=== PATIENT | male | born 1940 | race Caucasian/White ===

== ENCOUNTER → 2019-06-09 | Outpatient (CLI) | payer OTHER ==
[~2019-06-09] VITALS: Ht 180.3 cm; Wt 90.1 kg
[~2019-06-09] MED LIST: ACTOS 30 MG TAB30 M1 PO; ASA81BEC PO; ATORVASTATIN CA80 MG PO; FISH OIL 1,0001 EAC9 PO; FOLIC ACID1 MG PO; LISINOPRIL2.5 MG PO; MULTIPLE VITAM1 EAC2 PO; NORVASC 2.5 MG2.5 M1 PO; PRILOSEC OTC20 MG PO; VITAMIN B-121000 MC2 PO; ZESTRIL40 MG PO
[2019-06-09 08:22] VITALS: BP 165/64
[2019-06-09 09:01] LABS: HEMOGLOBIN 14.4 gm/dL (14.0-18.0); MCH 30.3 pg (26.0-34.0); MCHC 32.8 g/dL (28.0-37.0); MCV 92.6 fL (80.0-100.0); RBC 4.75 mil/uL (4.50-6.00); RDW 13.9 % (10.5-14.5); WBC 4.9 thou/uL (4.0-11.0)
[2019-06-09 09:13] LABS: CALCIUM 9.7 mg/dL (8.5-10.1); CREATININE 1.5 mg/dL (0.7-1.3); POTASSIUM 3.8 mmol/L (3.5-5.1)
--- NOTE | 2019-06-14 18:52 | CATHLAB ---
[facility] [address] [place] [address] INVASIVE PROCEDURE REPORT Name: JEMIMA GOYAL [facility]: [facility] [id number] Admission: 06/09/19 Attend Phys: Han Koenig Discharge: Date of : 38 Report #: [id number] THIS REPORT FOR: //name// APPROVED REPORT Study performed: 06/09/2019 09:45:14 Patient Details Patient Status: Out-Patient Room #: The patient is a 78 year-old male Event Personnel Han Butler Sales Mgr, Anastasiia Lang RN RN, Mana Patel Monitor, Ruth Tao RTR Scrub Procedures Performed Art Access - R femoral artery* 98786 Initial Mod Sed Same Phys/QHP Gr5y 551883 Left Heart Cath w/or w/o Coronaries [id number] C Hemostasis with Manual pressure 70247 Mod Sed Same Phys/QHP Ea 167203, supervision of conscious sedation Indication Chest pain Procedure Narrative The patient was brought electively to the Cardiac Catheterization Laboratory and was prepped and draped in a sterile manner. The Right Groin^ was infiltrated with 1% Lidocaine subcutaneous anesthesia. A BRITE TIP 6FR X 23CM Sheath #[id number] sheath was inserted into the RFA^. Coronary angiography was performed using coronary diagnostic catheters. The right coronary system was accessed and visualized with a JR 4 catheter. The left coronary system was accessed and visualized with a JL 4 catheter. The left ventricle was accessed and visualized with a JR 4 catheter. Left ventricular/Aortic Valve gradient assessed via catheter pullback. Hemostasis was obtained with manual pressure following sheath removal without any complications. The patient tolerated the procedure well and there were no complications associated with the procedure. There was no hematoma. Intraoperative Conscious Sedation Sedation start time: 09:39 Case end Time: 10:18 Versed 3 mg Fluoro Time: 5.00 minutes [facility] [place] [address] INVASIVE PROCEDURE REPORT Name: JYOTSNAJEMIMA JOHN Room #: REG CL [facility]#: [id number] Admission: 06/09/19 Attend Phys: Han Keonig Discharge: Date of : 38 Report #: [id number] Dose: DAP 7245.00 cGycm2 1263 mGy Contrast Type and Amount: Omnipaque 55 ml Coronary Angiography The patient's coronary anatomy is right dominant. Diagnostic Cath Left Main Moderate to large-caliber vessel bifurcates left anterior descending left circumflex free of high-grade disease LAD Moderate caliber type III vessel which courses in the anterior interventricular sulcus. The vessel is heavily calcified on fluoroscopy in the proximal and mid portions. Angiography demonstrates the presence of a 50% eccentric lesion at the site of heavy calcification the proximal LAD. This does not appear to be flow-limiting. It continues on giving rise to diagonal branches were free of high-grade disease. The vessels courses tortuous towards the apex continuing to give rise to septal and diagonal branches with only mild irregularities noted. No high-grade lesions are present Diagonal 1 Small-caliber vessel with an ostial lesion noted. There does not appear to be flow-limiting. The vessel is diminutive in size Circumflex Moderate to large caliber nondominant vessel which courses in the AV groove and gives rise to a large marginal branch which bifurcates and proceed along the lateral last week of the left ventricle. Luminal irregularities are noted but no high-grade lesions are present. The circumflex proper then continues on to Haynes small posterior wall branch OM1 Large-caliber bifurcating vessel without high-grade lesions noted as it trifurcates beyond the initial takeoff of the circumflex proper. It is free of high-grade stenosis. Right Coronary Moderate to large-caliber vessel of normal origin. Courses in the AV groove giving rise to small caliber RV and RA branches. Then continues to the crux of the heart giving rise to a small to moderate caliber posterior descending artery and terminating in a small caliber posterior wall branch free of high-grade lesions or luminal irregularities R PDA Small to moderate caliber vessel coursing in the posterior interventricular sulcus free of high-grade disease as it proceeds for the apex. Left Ventriculography Left Ventriculography was not performed. Hemodynamics The aortic pressure is 146/67 mmHg with a mean of 98 mmHg. The left [facility] [address] [place] [address] INVASIVE PROCEDURE REPORT Name: JEMIMA GOYAL LADI Room #: REG CL [facility]#: [id number] Admission: 06/09/19 Attend Phys: Han Koenig Discharge: Date of : 38 Report #: [id number] ventricular pressure is 122/13 mmHg with a mean of mmHg. The left ventricular end diastolic pressure is 32 mmHg. Conclusion 1. Coronary disease, moderate, single vessel 2. Normal hemodynamics Recommendations Cardiac Risk Reduction Program Aggressive Medical Therapy <ELECTRONICALLY SIGNED> By: Han Butler MD 06/14/191850 50 50 Han Butler MD /INF
== END | disposition home or self-care (01) ==
LOC: CATH 07:30
PROVIDERS: Internal Medicine
DX: R93.1 Abnormal findings on diagnostic imaging of heart and coronary circulation (principal); I25.10 Atherosclerotic heart disease of native coronary artery without angina pectoris; I10 Essential (primary) hypertension; E78.5 Hyperlipidemia, unspecified; K21.9 Gastro-esophageal reflux disease without esophagitis; Z98.890 Other specified postprocedural states; Z79.899 Other long term (current) drug therapy; Z85.46 Personal history of malignant neoplasm of prostate; Z90.5 Acquired absence of kidney; Z88.8 Allergy status to other drugs, medicaments and biological substances; Z79.82 Long term (current) use of aspirin